=== PATIENT | female | born 1995 | race Caucasian/White ===

== ENCOUNTER 2018-07-31 10:44 | Inpatient (IN) | payer OTHER ==
[~2018-07-31] VITALS: Ht 170.2 cm; Wt 86.8 kg
[2018-10-16] VITALS (44 sets, daily range): BP systolic 101–139; BP diastolic 55–71; PULSE 63–129; TEMP 97.4–98
--- NOTE | 2018-10-16 07:05 | NUR ---
Pt arrives on unit ambulatory with spouse for induction of labor at 39.0 weeks gestation. Changed into clean gown. EFM and toco applied. VSS. Denies vaginal bleeding, regular ctx, LOF and reports good movement. IV started in LW. Labs drawn. LR infusing. Admission assessment completed. Consents signed. Pt updated on POC. Oriented to room. Call light within reach. Bed locked in low positon. No questions or concerns at this time.
[2018-10-16] MEDS ORDERED: VTAMINC250TA (07:21)
[2018-10-16] MEDS ORDERED: PRENATAL MVI (07:21)
[2018-10-16] MEDS ORDERED: PROFERRIN ES12 MG PO (07:21)
[2018-10-16 08:24] LABS: BASO % 0.2 % (0.0-2.0); EOS # 0.1 (0.0-0.7); EOS % 0.9 % (0-4.0); GRAN # 6.9 (1.4-6.5); GRAN % 78.3 % (42.2-75.2); HEMOGLOBIN 11.6 g/dl (12.5-16.0); LYMPH # 1.2 (1.2-3.4); LYMPH % 13.9 % (20.0-51.0); MEAN CELL VOLUME 95 fl (80.0-100.0); MEAN CORPUSCULAR HEMOGLOBIN 31 pg (27.0-31.0); MEAN CORPUSCULAR HGB CONC 33 g/dl (33.0-37.0); MEAN PLATELET VOLUME 11.3 fl (7.4-10.4); MONO # 0.5 (0.1-0.6); MONO % 6.1 % (1.7-9.3); PLATELET COUNT 187 K/mm3 (130-400); RED BLOOD COUNT 3.71 M/mm3 (4.10-5.30); REDCELL DISTRIBUTION WIDTH-CV 16.4 % (11.5-14.5)
[2018-10-16 08:25] LABS: HEMATOCRIT 35.3 % (37.0-47.0)
--- NOTE | 2018-10-16 13:45 | NUR ---
Difficulty tracing FHR due to maternal position on birthing ball. RN at bedside adjusing monitors. Monitors tracing maternal pulse. FHR audible.
--- NOTE | 2018-10-16 15:15 | NUR ---
Pt sitting upright for epidural placement. Difficulty tracing FHR due to maternal position. RN at bedside.
--- NOTE | 2018-10-16 16:10 | NUR ---
Pt calling out with increase of pressure. SVE per this RN C/+2. Dr. Clement on unit. Requeted to bedside for delivery. 1615- of viable female infant attended by Dr. Clement. Nuchal cord x 1. Cord clamped x 2 and cut from umbilicus. dried and placed on mother's abdomen. Care of to Babak Nevarez RN. 1619- of placenta. Pitocin infusing per protocol. Perineum intact. Fundus firm at umbilicus. Bleeding WNL. Pericare performed. Ice pack applied. Pt updated on POC. Safety reviewed. Bed locked in low position. Call light within reach. No questinos or concerns at this time.
--- NOTE | 2018-10-16 18:40 | NUR ---
1840 EPID CATH DC'D. UP TO BR WITH ASSIST AND VOIDED 500CC. PERICARE DONE. TO NSY PER W/C TO WATCH BABY BATH AND THEN TO 208. ZAINA WELL.
[2018-10-17 00:45] VITALS: BP 113/58; PULSE 68; TEMP 98.5
[2018-10-17 07:15] VITALS: BP 117/69; PULSE 71; TEMP 98.2
--- NOTE | 2018-10-17 07:30 | NUR ---
Rests in bed, alert. Denies any needs at this time. States trying to wake baby up to eat.
[2018-10-17] MEDS ORDERED: IBU600 MG PO (08:29)
--- NOTE | 2018-10-17 10:42 | NUR ---
Initial visit; Parents thanked Style Advisor for offering congratulations and God's blessings for the of their daughter. Style Advisor thanked them for choosing [facility].
[2018-10-17 12:00] VITALS: BP 117/63; PULSE 70; TEMP 98.3
== END 2018-10-17 17:50 | disposition home or self-care (01) | DRG 807 ==
LOC: LDR 10-16 06:53 → OB 10-16 06:53 → LDRO 10-23 10:44 → EDSTATUS 10-23 12:36 → OB 10-23 12:36
PROVIDERS: ADMIT Obstetrics & Gynecology
PROC: 10E0XZZ Delivery of Products of Conception, External Approach (ICD-10-PCS; principal; 2018-10-16)
PROC: 10907ZC Drainage of Amniotic Fluid, Therapeutic from Products of Conception, Via Natural or Artificial Opening (ICD-10-PCS; 2018-10-16)
PROC: 3E033VJ Introduction of Other Hormone into Peripheral Vein, Percutaneous Approach (ICD-10-PCS; 2018-10-16)
DX: O99.02 Anemia complicating childbirth (principal); Z37.0 Single live birth; D64.9 Anemia, unspecified; O69.1XX0 Labor and delivery complicated by cord around neck, with compression, not applicable or unspecified; Z3A.39 39 weeks gestation of pregnancy
CPT/HCPCS: J2590; J2795; J7120

== ENCOUNTER → 2019-11-06 | Outpatient (CLI) | payer OTHER ==
[~2019-11-06] MED LIST: IBU600 MG PO; MOTRIN 800800 MG/TAB PO; POLYMYXIN B/TRIMETH OD; PRENATAL MVI; PROFERRIN ES12 MG PO; VTAMINC250TA
== END ==
LOC: COL.LAB 10:00
DX: Z20.828 Contact with and (suspected) exposure to other viral communicable diseases (principal)

== ENCOUNTER 2019-11-11 07:05 | Inpatient (IN) | payer OTHER ==
[2019-11-11] VITALS (50 sets, daily range): BP systolic 99–140; BP diastolic 55–75; PULSE 63–93; TEMP 97.9–98.6
[~2019-11-11] VITALS: Ht 170.2 cm; Wt 86.2 kg
[~2019-11-11 07:05] MED LIST changes: -MOTRIN 800800 MG/TAB PO; -POLYMYXIN B/TRIMETH OD
--- NOTE | 2019-11-11 07:17 | NUR ---
PT HERE FOR INDUCTION OF LABOR. FHT'S FOUND IN THE 130'S WITH MODERATE VARIABILITY AND ACCELS. IV STARTED IN LEFT HAND WITH LR INFUSING WITHOUT DIFFICULTY. PLAN OF CARE REVIEWED. ASSESSMENT COMPLETED. DR JONES IN AT 0745, SVE /-3, BEDSIDE ULTRASOUND COMPLETED BY DR JONES TO CONFIRM BABY IS HEAD DOWN. AROM AT 0751 WITH CLEAR FLUID RETURNED. PITOCIN STARTED AT 0800 PER ORDER AT 2MU/MIN.
[2019-11-11 08:20] LABS: BASO % 0.2 % (0.0-2.0); EOS # 0.1 (0.0-0.7); EOS % 1.1 % (0-4.0); GRAN # 5.1 (1.4-6.5); GRAN % 79.7 % (42.2-75.2); HEMOGLOBIN 10.4 g/dl (12.5-16.0); LYMPH # 0.8 (1.2-3.4); LYMPH % 12.2 % (20.0-51.0); MEAN CELL VOLUME 91 fl (80.0-100.0); MEAN CORPUSCULAR HEMOGLOBIN 29 pg (27.0-31.0); MEAN CORPUSCULAR HGB CONC 32 g/dl (33.0-37.0); MEAN PLATELET VOLUME 11.6 fl (7.4-10.4); MONO # 0.4 (0.1-0.6); MONO % 6.2 % (1.7-9.3); PLATELET COUNT 178 K/mm3 (130-400); RED BLOOD COUNT 3.55 M/mm3 (4.10-5.30); REDCELL DISTRIBUTION WIDTH-CV 15.7 % (11.5-14.5)
[2019-11-11 09:14] LABS: HEMATOCRIT 32.4 % (37.0-47.0)
--- NOTE | 2019-11-11 09:30 | NUR ---
FHT'S DIFFICULT TO MONITOR, CAN HEAR THEM ON MONITOR BUT NOT TRACING ADEQUATELY. PT REPORTS BABY IS MOVING ALL OVER THE PLACE. PT REPOSITIONED TWICE WITH IMPROVEMENT OVER A 90 SECOND PERIOD. B CRINGAN RN IN AT [address] SCALP ELECTRODE. SVE REMAINS UNCHANGED AT 3/60/-3. FSE PLACED.
--- NOTE | 2019-11-11 12:30 | NUR ---
DR JONES CALLED AT 1226 TO CHECK ON PT. STATUS UPDATE GIVEN: SVE /-3, CERVIX MIDPOSITION NOW. PT RESTING IN BED WITH AT SIDE.
--- NOTE | 2019-11-11 13:30 | NUR ---
SVE AT 1318 REMAINS UNCHANGED. PT STATES THIS IS HOW HER PREVIOUS LABORS WERE-SHE STALLED AT 4CM FOR HOURS BEFORE PROGRESSING.
--- NOTE | 2019-11-11 13:45 | NUR ---
PT REPOSITIONED SITTING IN MARLA POSITION. FHT'S WITH MODERATE VARIABILITY. PITOCIN INCREASED TO 18MU, CONTRACTIONS EVERY 3 MINUTES
--- NOTE | 2019-11-11 15:00 | NUR ---
SVE REMAINS UNCHANGED AT 4/80/-3. FHT'S WITH MODERATE VARIABILITY AND ACCELS.
--- NOTE | 2019-11-11 15:15 | NUR ---
DR JONES CALLS AT 1503 TO CHECK ON PT, HERE AT 1508 AND PERFORMS SVE: /-, ENCOURAGES PT TO GET EPIDURAL AND PT AGREES. LR BOLUS INFUSING. DEBBIE LUIS CRNA, CALLED AT [address] EPIDURAL.
--- NOTE | 2019-11-11 15:45 | NUR ---
DEBBIE LUIS CRNA, HERE AT 1525 FOR EPIDURAL PLACEMENT. PT POSITIONED SITTING UPRIGHT. PULSE OX IN PLACE. SINGLE SHOT GIVEN AT 1531 WITH NO ABNORMAL SYMPTOMS OBSERVED OR REPORTED. PT REPOSITIONED SITTING UPRIGHT AFTER EPIDURAL PLACEMENT.
--- NOTE | 2019-11-11 16:15 | NUR ---
SVE /-1. HEAD MORE ENGAGED, BLOODY SHOW WITH CERVICAL EXAM. PHONED DR JONES WITH STATUS UPDATE AT 1615. PT RESTING COMFORTABLY IN BED.
--- NOTE | 2019-11-11 17:15 | NUR ---
SVE 7-8/90/-1. PT RESTING COMFORTABLY. FHT'S WITH EARLY DECELS.
--- NOTE | 2019-11-11 17:30 | NUR ---
DR JONES HERE AT 3827. SVE 7-8/80/0.
--- NOTE | 2019-11-11 18:00 | NUR ---
SVE 9-100/0. FHT'S WITH LATE DECELS. PT REPOSITIONED. DR JONES CALLED AT [address]
--- NOTE | 2019-11-11 18:05 | NUR ---
at bedside. 1805: External TOCO applied and internal removed. 1809: Scalp electrode applied by . Pt begins pushing with with contractions. 1812: Cook removed and pt continues pushing with provider. 1813: Scalp electrode removed by provider and external EFM reapplied. 1819: Pt repositioned into footplates and continues pushing with contractions with provider. Pulse ox applied to determine maternal heart rate. 1824: Spontaneous delivery of viable female infant by . Pitocin stopped per protocol. to mothers chest where dried and stimulated by nursery RN. Care of infant assummed by LAKESHIA Fabian. 1825: Spontaneous delivery of intact placenta by . Pitocin resummed at 333mus/hr per protocol. Perineum intact. Fundus firm and bleeding WNL. Pericare provided, pads changed, ice pack applied and pt repositioned in bed. Plan of care and safety precautions explained to pt and who verbalize their understanding. See doctor dications, anestheisa records and nurses notes.
[2019-11-12 01:20] VITALS: BP 118/72; PULSE 73; TEMP 98.8
[2019-11-12 04:30] VITALS: BP 114/72; PULSE 83; TEMP 98.6
[2019-11-12 07:15] VITALS: BP 115/63; PULSE 75; TEMP 98.2
[2019-11-12] MEDS ORDERED: MOTRIN 800800 MG/TAB PO (08:36)
[2019-11-12] MEDS ORDERED: POLYMYXIN B/TRIMETH OD (09:23)
--- NOTE | 2019-11-12 12:08 | NUR ---
Initial visit attempt; Family resting, Miniature Set Designer left card of congratulations for the of their daughter and information regarding the availability of spiritual care at our hospital.
[2019-11-12 15:45] VITALS: BP 122/66; PULSE 81; TEMP 97.4
[2019-11-12 21:30] VITALS: BP 117/69; PULSE 63; TEMP 98.8
[2019-11-13 08:05] VITALS: BP 118/63; PULSE 73; TEMP 98.1
== END 2019-11-13 10:35 | disposition home or self-care (01) | DRG 807 ==
LOC: OB → LDR 07:05 → OB 07:05
PROVIDERS: ADMIT Obstetrics & Gynecology
PROC: 10E0XZZ Delivery of Products of Conception, External Approach (ICD-10-PCS; principal; 2019-11-11)
PROC: 10907ZC Drainage of Amniotic Fluid, Therapeutic from Products of Conception, Via Natural or Artificial Opening (ICD-10-PCS; 2019-11-11)
DX: O99.02 Anemia complicating childbirth (principal); Z37.0 Single live birth; D64.9 Anemia, unspecified; H10.9 Unspecified conjunctivitis; O99.89 Other specified diseases and conditions complicating pregnancy, childbirth and the puerperium; Z3A.39 39 weeks gestation of pregnancy
CPT/HCPCS: J2590; J2795; J7120

== ENCOUNTER 2020-10-11 20:33 | Inpatient (IN) | payer OTHER ==
[2020-10-11] VITALS (7 sets, daily range): BP systolic 127–150; BP diastolic 66–90; PULSE 64–78; TEMP 98.3
[~2020-10-11] VITALS: Ht 170.2 cm; Wt 95.5 kg
[~2020-10-11 20:33] MED LIST changes: +MOTRIN 800800 MG/TAB PO; +POLYMYXIN B/TRIMETH OD
--- NOTE | 2020-10-11 20:40 | NUR ---
2039- PT PRESENTS TO LDR COMPLAINING OF CONTRACTIONS. AMBULATORY TO ROOM LR6, CHANGED INTO GOWN. 2044- EFM X2 APPLIED. PT DENIES LEAKING FLUID OR VAGINAL BLEEDING. STATES SHE HAS BEEN MARY JANE ALL DAY WITH INCREASE IN INTENSITY AT 1600. STATES SHE IS FEELING BABY MOVE. PLAN OF CARE FOR LABOR CHECK DISCUSSED AND QUESTIONS ANSWERED. 2049- SVE BY THIS NURSE 5-680/-3 WITH BULGING BAG OF LOCO. PLAN OF CARE DISCUSSED. 2099- NURSING ADMISSION HISTORY AND ASSESSMENT COMPLETED. 2116- DR HASSAN CALLED CHARTED. 2124- IV START CHARTED. BLOOD DRAWN FOR LABS, LR INFUSING. 2144- PT BREATHING THROUGH CONTRACTIONS WELL AT THIS TIME AND SHE DENIES WANTING AN EPIDURAL. CONSENTS SIGNED. 2147- PT UP TO BATHROOM. 2229- PT REPORTS INCREASING DISCOMFORT. SVE BY THIS NURSE WITH BULGING BAG. PT DECLINES EPIDURAL OR FURTHER NEEDS AT THIS TIME. 2255- PT UP TO BATHROOM. 2258- PT UNCOMFORTABLE AND WISHES TO STAND AT EDGE OF BED. DIFFICULT TO TRACE HEART TONES AT THIS TIME. 2318- PT HAS STILL BEEN STANDING AT BEDSIDE. TO BATHROOM. PT VERY UNCOMFORTABLE. 2330- PT ASKING ABOUT EPIDURAL AT THIS TIME. STATES SHE CAN'T DO IT ANYMORE AND THAT SHE IS TOO UNCOMFORTABLE. SVE BY THIS NURSE WITH BULGING BAG. PT WILL WAIT FOR DR HASSAN AND PUSH INSTEAD OF GETTING EPIDURAL AT THIS TIME. 2335- PT FEELING VERY PUSHY. DR HASSAN IN ANOTHER DELIVERY. PT ENCOURAGED TO BREATHE THROUGH CONTRACTIONS. SPONTANEOUS RUPTURE OF MEMBRANES, CLEAR FLUID. PT BEGINS TO SPONTANEOUSLY PUSH WITH CONTRACTION DESPITE COACHING TO BREATHE THROUGH. NURSERY AND CHARGE NURSE CALLED FOR ASSISTANCE TO PULL DR HASSAN FROM THE OTHER DELIVERY IF POSSIBLE. 2338- PT SPONTANEOUSLY PUSHING, DR HASSAN ARRIVES JUST BABY HEAD IS DELIVERING. SPONTANEOUS VAGINAL DELIVERY OF VIABLE MALE BY DR HASSAN. VIGOROUS, TO MOTHER'S ABDOMEN AND CARE OF NURSERY STAFF. 2342- SPONTANEOUS DELIVERY OF PLACENTA, EXAMINED BY DR HASSAN. NO REPAIR NEEDED. PITOCIN INFUSING ORDERED. 2345- PERICARE PROVIDED. ICEPACK TO PERINEUM. FEET DOWN AND RECOVERY STARTED.
[2020-10-11 22:00] LABS: BASO % 0.3 % (0.0-2.0); EOS # 0.1 (0.0-0.7); EOS % 1.2 % (0-4.0); GRAN # 6.8 (1.4-6.5); GRAN % 74.3 % (42.2-75.2); HEMOGLOBIN 11.2 g/dl (12.5-16.0); LYMPH # 1.5 (1.2-3.4); LYMPH % 16.4 % (20.0-51.0); MEAN CELL VOLUME 91 fl (80.0-100.0); MEAN CORPUSCULAR HEMOGLOBIN 30 pg (27.0-31.0); MEAN CORPUSCULAR HGB CONC 33 g/dl (33.0-37.0); MEAN PLATELET VOLUME 11.2 fl (7.4-10.4); MONO # 0.7 (0.1-0.6); MONO % 7.1 % (1.7-9.3); PLATELET COUNT 227 K/mm3 (130-400); RED BLOOD COUNT 3.72 M/mm3 (4.10-5.30); REDCELL DISTRIBUTION WIDTH-CV 15.9 % (11.5-14.5)
[2020-10-12] VITALS (9 sets, daily range): BP systolic 114–128; BP diastolic 46–80; PULSE 60–78; TEMP 98.2–98.5
--- NOTE | 2020-10-12 02:20 | NUR ---
PT UP TO BATHROOM, ABLE TO VOID 700MLS WITHOUT DIFFICULTY. PERICARE CARE PROVIDED, ICEPACK AND MESH UNDERWEAR APPLIED. PT TO AMBULATORY, TOLERATED WELL.
--- NOTE | 2020-10-12 10:28 | NUR ---
Initial visit; Parents thanked for offering congratulations for the of their son. Global Director [employer] And Climate Change thanked family for choosing [place]
[2020-10-12] MEDS ORDERED: PERCOCET 325 MG1 TA2 PO ×2 (11:20)
[2020-10-12] MEDS ORDERED: MOTRIN 800800 MG/TAB PO (11:20)
[2020-10-13 00:30] VITALS: BP 128/60; PULSE 70; TEMP 98
[2020-10-13 04:30] VITALS: BP 140/70; PULSE 75; TEMP 98.2
[2020-10-13 07:44] VITALS: BP 98/58; PULSE 76; TEMP 98.1
== END 2020-10-13 13:11 | disposition home or self-care (01) | DRG 807 ==
LOC: LDRO 20:33 → LDR 20:52 → OB 20:52
PROVIDERS: Obstetrics & Gynecology; ADMIT Obstetrics & Gynecology
PROC: 10E0XZZ Delivery of Products of Conception, External Approach (ICD-10-PCS; principal; 2020-10-11)
DX: O99.02 Anemia complicating childbirth (principal); Z37.0 Single live birth; D64.9 Anemia, unspecified; Z3A.39 39 weeks gestation of pregnancy
CPT/HCPCS: J2590; J7120

== ENCOUNTER 2021-10-30 01:21 | Inpatient (IN) | payer OTHER ==
[~2021-10-30] VITALS: Ht 170.2 cm; Wt 90.0 kg
[2021-10-30] VITALS (9 sets, daily range): BP systolic 113–130; BP diastolic 59–76; PULSE 60–71; TEMP 97.7–98.2
[~2021-10-30 01:21] MED LIST changes: +PERCOCET 325 MG1 TA2 PO
--- NOTE | 2021-10-30 01:30 | NUR ---
PATIENT ADMITTED TO [facility] [id number] AFTER PRESENTING FOR LABOR CHECK WITH SVE OF /-3. VSS. FHT REACTIVE AND REASSURING WITH INTERMITTENT VARIABLE DECELERATIONS AND REGULAR PAINFUL CONTRACTIONS. CONSENT FORMS SIGNED AND MEDICAL HX OBTAINED. ASSESSMENT COMPLETED AND WNL. IV PLACED AND LABWORK SENT. LABOR PLAN REVIEWED WITH DR. CAUSEY AND RELAYED TO PATIENT AND SIGNIFICANT OTHER. ORIENTED TO ROOM AND UNIT ROUTINES. WILL CONTINUE TO MONITOR AND UPDATE PROVIDER.
[2021-10-30 02:01] LABS: BASO % 0.4 % (0.0-2.0); EOS # 0.1 K/mm3 (0.0-0.7); EOS % 1.5 % (0.0-4.0); GRAN # 5.5 K/mm3 (1.4-6.5); GRAN % 73.9 % (42.2-75.2); HEMOGLOBIN 10.4 g/dl (12.5-16.0); LYMPH # 1.3 K/mm3 (1.2-3.4); LYMPH % 17.4 % (20.0-51.0); MEAN CELL VOLUME 88 fl (80.0-100.0); MEAN CORPUSCULAR HEMOGLOBIN 29 pg (27-31); MEAN CORPUSCULAR HGB CONC 33 g/dl (33.0-37.0); MEAN PLATELET VOLUME 11.3 fl (7.4-10.4); MONO # 0.5 K/mm3 (0.1-0.6); MONO % 6.3 % (1.7-9.3); PLATELET COUNT 236 K/mm3 (130-400); RED BLOOD COUNT 3.63 M/mm3 (4.10-5.30); REDCELL DISTRIBUTION WIDTH-CV 17.2 % (11.5-14.5)
[2021-10-30 02:02] LABS: HEMATOCRIT 31.9 % (37.0-47.0)
--- NOTE | 2021-10-30 04:02 | NUR ---
PATIENT AAOX4 IN BED RESTING HOLDING HER BABY WITH NO SIGNS OF DISTRESS. BED IS LOW WITH WHEELS LOCKED. CALL TIAN LIGHT IS WITHIN REACH.
--- NOTE | 2021-10-30 04:21 | NUR ---
@0319 PATIENT CALLED OUT STATING SHE NEEDED TO PUSH. @0320 RN AND MS AT THE BEDSIDE SVE10/100/+3. PATIENT PERINUM CLEANED WITH PREP. PATIENT LEGS PLACED IN STIRRUPS FOR DELIVERY. @0340 BABY GIRL WAS DELIVERED.
[2021-10-30] MEDS ORDERED: MOTRIN 800800 MG/TAB PO (14:57)
[2021-10-31 00:45] VITALS: BP 115/56; PULSE 63; TEMP 98.1
[2021-10-31 03:40] VITALS: BP 117/69; PULSE 60; TEMP 97.8
[2021-10-31 07:24] VITALS: BP 115/73; PULSE 82; TEMP 97.1
--- NOTE | 2021-10-31 10:02 | NUR ---
Initial visit; Parents sleeping, Outreach Representative left card of congratulations to family for the of their daughter and information regarding the availability of Spiritual Care at our hospital.
== END 2021-10-31 11:52 | disposition home or self-care (01) | DRG 807 ==
LOC: LDRO 01:21 → LDR 01:51 → OB 05:39
PROVIDERS: Obstetrics & Gynecology; ADMIT Obstetrics & Gynecology
PROC: 10E0XZZ Delivery of Products of Conception, External Approach (ICD-10-PCS; principal; 2021-10-30)
DX: O99.02 Anemia complicating childbirth (principal); Z37.0 Single live birth; D64.9 Anemia, unspecified; O69.81X0 Labor and delivery complicated by cord around neck, without compression, not applicable or unspecified; Z3A.39 39 weeks gestation of pregnancy
CPT/HCPCS: J2590

== ENCOUNTER → 2023-04-12 | Outpatient (CLI) | payer OTHER | LOC: COL.RAD 12:00 | DX: O00.90 Unspecified ectopic pregnancy without intrauterine pregnancy (principal) ==